=== PATIENT | female | born 1965 | race Caucasian/White ===

== ENCOUNTER → 2016-12-05 | Outpatient (CLI) | payer BC ==
[~2016-12-05] MED LIST: CALC500C70 PO; CNT PO; CYAN100020 PO; DIPH-416 PO; DORZ1SOL OPB; EST1 PO; PANT40TA PO; RANI1TAB77 PO
--- NOTE | 2016-12-06 13:29 | MAMMOGRAPHY REPORT ---
BILATERAL DIGITAL SCREENING MAMMOGRAM TOMOSYNTHESIS WITH CAD: 12/05/2016 CLINICAL HISTORY: Routine screening examination. TECHNIQUE: Breast tomosynthesis in addition to standard 2D mammography was performed. Current study was also evaluated with a Computer Aided Detection (CAD) system. COMPARISON: Comparison is made to exams dated: 11/25/2014 mammogram, 12/02/2015 mammogram, 10/15/2012 mammogram, and 10/08/2012 mammogram - [facility]. BREAST COMPOSITION: The tissue of both breasts is extremely dense, which lowers the sensitivity of mammography. FINDINGS: There are minimal vascular calcifications in the right breast. A grouping of round and pu nctate microcalcifications in the upper outer posterior right breast appears similar dating back to at least 07/29/2010, therefore likely benign. No new suspicious mass, architectural distortion or c luster of new, suspicious microcalcifications is seen. IMPRESSION: ACR BI-RADS CATEGORY 1: NEGATIVE There is no mammographic evidence of malignancy. A 1 year screening mammogram is recommended. The p atient will receive written notification of the results. Approximately 10% of breast cancers are not detected with mammography. A negative mammographic repor t should not delay biopsy if a clinically suggestive mass is present. Patsy Cardenas M.D. ay/:12/05/2016 16:47:15 Bit Welder: Analy TUCKER)(Kathie), [facility] letter sent: Normal 1/2 BI-RADS Code: ACR BI-RADS Category 1: Negative
== END | disposition home or self-care (01) ==
LOC: C.MAMM 11:03
PROVIDERS: ATTEND Internal Medicine
DX: Z12.31 Encounter for screening mammogram for malignant neoplasm of breast (principal)

== ENCOUNTER → 2017-01-02 | Day surgery (SDC) | payer BC ==
[2016-12-29 08:58] VITALS: Ht 165.1 cm; Wt 45.5 kg
[~2017-01-02] VITALS: Ht 165.1 cm; Wt 45.5 kg
[~2017-01-02] MED LIST changes: +LIDOCAINE HCL 2% 2 ML VIAL (20MG/ML) ONE; +MIDAZOLAM HCL 1 MG/ML 2ML VIAL ONE; +PROPOFOL IV EMULSION 10 MG/ML 20 ML VIAL IV ONE; +SODIUM CHLORIDE 0.9% 500ML 500 ML IV ONE
--- NOTE | 2017-01-02 11:56 | Endo History and Physical ---
History & Physical Date of Service: Jan 02, 2017. Chief Complaint: Reyes Syndrome Referring Physician: Dr. 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 Past Medical History Glaucoma, Cancer, Thyroid Disease Past Surgical History Hx Cardiac Surgery: No Hx Internal Defibrillator: No Hx Pacemaker: No Hx Abdominal Surgery: Yes (COLON RESECTION WITH COLOSTOMY, SMALL BOWEL RESECTION, TOTAL COLECTOMY/ILEO) Hx Post-Op Nausea and Vomiting: Yes Hx Cancer Surgery: Yes (SEE ABOVE) Hx Thoracic Surgery: No Hx Orthopedic: No Hx Urinary Tract Surgery: No Family History Colon CA Social History Smoking Status: Never Smoker Hx Substance Use: No Hx Alcohol Use: No Allergies Coded Allergies: Prochlorperazine (Verified Allergy, Unknown, JITTERY,MIND RACING, 12/29/16) Penicillins (Verified Adverse Reaction, Unknown, GI UPSET;DIARRHEA, ) Current Medications Reported Home Medications Medications Dose Route/Sig Max Daily Dose Days Date Category Dose Instructions Vitamin B12 (Cyanocobalamin) 1,000 Mcg Tab 1 Tab PO QAM 12/29/16 Reported Protonix (Pantoprazole Sodium) 40 Mg Tab 40 Mg PO DAILY PRN 10/23/15 Reported Ranitidine [address] (Ranitidine HCl) 150 Mg Tab PO HS 11/20/14 Reported Trusopt Oph (Dorzolamide HCl) Soln 2 Drop OPB BID 09/30/13 Reported Lomotil (Diphenoxylate HCl/Atropine) Tab 1 Tab PO UD 02/08/12 Reported Os-Magnus 500 Plus D (Calcium/Vitamin D) Tab 1 Tab PO DAILY 12/01/11 Reported Centrum * (Multivitamins/Minerals) 1 Tab Tab 1 Tab PO DAILY 12/01/11 Reported CHEWABLE TAB Estrace * (Estradiol) 1 Mg Tab 1 Mg PO Q2D 12/01/11 Reported Vital Signs Weight (Kilograms): 45.45 Height (Feet): 5 Height (Inches): 5 Date Time Temp Pulse Resp B/P Pulse Ox O2 Delivery O2 Flow Rate FiO2 01/02/17 11:20 36.5 61 16 94/47 100 Room Air Physical Exam General Appearance: WD/WN, no apparent distress Respiratory/Chest: Auscultation: breath sounds normal Cardiovascular: Heart Auscultation: RRR Abdomen: Bowel Sounds: normal Inspection & Palpation: soft, non-distended, no tenderness, guarding & rebound Assessment and Plan Assessment: 51 yo CF who presents for 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
--- NOTE | 2017-01-02 12:34 | GI REPORT ---
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 Estimated Blood Loss: Estimated blood loss: none. Procedure: Pre-Anesthesia Assessment: - Prior to the procedure, a History and Physical was performed, and patient medications and allergies were reviewed. The patient's tolerance of previous anesthesia was also reviewed. The risks and benefits of the procedure and the sedation options and risks were discussed with the patient. All questions were answered, and informed consent was obtained. Prior Anticoagulants: The patient has taken no previous anticoagulant or antiplatelet agents. ASA Grade Assessment: II - A patient with mild systemic disease. After reviewing the risks and benefits, the patient was deemed in satisfactory condition to undergo the procedure. After obtaining informed consent, the endoscope was passed under direct vision. Throughout the procedure, the patient's blood pressure, pulse, and oxygen saturations were monitored continuously. The scope was introduced through the mouth, and advanced to the second part of duodenum. The upper GI endoscopy was accomplished without difficulty. The patient tolerated the procedure well. Findings: The esophagus was normal. One 4 mm sessile polyp with no stigmata of recent bleeding was found in the gastric fundus. The polyp was removed with a cold biopsy forceps. Resection and retrieval were complete. The examined duodenum was normal. Impression: - Normal esophagus. - One gastric polyp. Resected and retrieved. - Normal examined duodenum. Recommendation: - Resume previous diet. - Continue present medications. - Await pathology results. - Return to GI office as previously scheduled. Catracho Carrion, 01/02/2017 12:33:50 PM This report has been signed electronically. Note Initiated On: 01/02/2017 11:45 AM I attest to the content of the Intraoperative Record and orders documented therein, exceptions below
--- NOTE | 2017-01-02 12:35 | Anesthesiology Progress Note ---
Anesthesia Post Op Note Date & Time Jan 02, 2017 at 12:35 Vital Signs Pain Intensity: 0 Vital Signs Past 12 Hours Date Time Temp Pulse Resp B/P Pulse Ox O2 Delivery O2 Flow Rate FiO2 01/02/17 11:20 36.5 61 16 94/47 100 Room Air Notes Mental Status: alert / awake / arousable, participated in evaluation Pt Amnestic to Procedure: Yes Nausea / Vomiting: adequately controlled Pain: adequately controlled Airway Patency, RR, SpO2: stable & adequate BP & HR: stable & adequate Hydration State: stable & adequate Anesthetic Complications: no major complications apparent
--- NOTE | 2017-01-02 12:38 | Discharge Instructions ---
Endoscopy Patient Instructions Date / Procedure(s) Performed Jan 02, 2017. EGD Allergy Information Coded Allergies: Prochlorperazine (Verified Allergy, Unknown, JITTERY,MIND RACING, 12/29/16) Penicillins (Verified Adverse Reaction, Unknown, GI UPSET;DIARRHEA, ) Discharge Date / Findings Jan 02, 2017. Gastric polyp s/p polypectomy with colon forceps Medication Instructions OK to resume all medications today as prescribed. Reported Home Medications Medications Dose Route/Sig Max Daily Dose Days Date Category Dose Instructions Vitamin B12 (Cyanocobalamin) 1,000 Mcg Tab 1 Tab PO QAM 12/29/16 Reported Protonix (Pantoprazole Sodium) 40 Mg Tab 40 Mg PO DAILY PRN 10/23/15 Reported Ranitidine [address] (Ranitidine HCl) 150 Mg Tab PO HS 11/20/14 Reported Trusopt Oph (Dorzolamide HCl) Soln 2 Drop OPB BID 09/30/13 Reported Lomotil (Diphenoxylate HCl/Atropine) Tab 1 Tab PO UD 02/08/12 Reported Os-Magnus 500 Plus D (Calcium/Vitamin D) Tab 1 Tab PO DAILY 12/01/11 Reported Centrum * (Multivitamins/Minerals) 1 Tab Tab 1 Tab PO DAILY 12/01/11 Reported CHEWABLE TAB Estrace * (Estradiol) 1 Mg Tab 1 Mg PO Q2D 12/01/11 Reported Provider Instructions Activity Restrictions - No exercising or heavy lifting for 24 hours. - Do not drink alcohol the day of the procedure. - Do not drive a car or operate machinery until the day after the procedure. - Do not make any important decisions or sign important papers in 24 hours after the procedure. Following Day: - Return to full activity which may include returning to work/school. Diet Start your diet with liquids and light foods (jello, soup, juice, toast). Then eat your usual diet if not nauseated. Treatment For Common After Affects For mild abdominal pain, bloating, or excessive gas: - Rest - Eat lightly - Lie on right side Follow-Up Information Follow-up with Dr. Rodriguez as scheduled Anesthesia Information What You Should Know You have had a procedure that required some medicine to reduce anxiety and discomfort. This treatment is called moderate sedation. After receiving the treatment, you may be sleepy, but you will be able to breathe on your own. The effects of the treatment may last for several hours. Follow these instructions along with Activity/Diet recommendations noted above: * Do NOT do anything where dizziness or clumsiness would be dangerous. * Rest quietly at home today, then you can be up and about tomorrow. * Have a responsible person stay with you the rest of today. * You may have had an I.V. today. If so, you may take the dressing off later today. Recommendations Call your doctor if: * Trouble breathing * Continuous vomiting for more than 24 hours * Temperature above 101 degrees * Severe abdominal pain or bloating * Pain not relieved by pain medicine ordered * There is increased drainage or redness from any incision * A large amount of rectal bleeding greater than 2-3 tablespoons. (If you had a polyp/s removed or have hemorrhoids, a small amount of blood - from the rectum is to be expected.) * You have any unanswered questions or concerns. IN THE EVENT OF A SERIOUS EMERGENCY, GO TO THE NEAREST EMERGENCY ROOM Your discharge instructions were prepared by provider Catracho Carrion. Patient Instructions Signature Page Cher Tsang Patient (or Guardian) Signature/Date: I have read and understand the instructions given to me by my caregivers. Caregiver/RN/Doctor Signature/Date: The above-named patient and/or guardian has received patient instructions on this date. + Original Patient Signature Page (only) stays with chart. Please make copy for patient.
[2017-01-02 13:00] VITALS: BP 93/54; PULSE 75; O2SAT 100
== END | disposition home or self-care (01) ==
LOC: C.GI 10:52
PROVIDERS: ATTEND Internal Medicine
DX: K31.7 Polyp of stomach and duodenum (principal); Z15.09 Genetic susceptibility to other malignant neoplasm; Z80.0 Family history of malignant neoplasm of digestive organs

== ENCOUNTER → 2017-04-06 | Outpatient (CLI) | payer BC ==
[~2017-04-06] MED LIST changes: -LIDOCAINE HCL 2% 2 ML VIAL (20MG/ML) ONE; -MIDAZOLAM HCL 1 MG/ML 2ML VIAL ONE; -PROPOFOL IV EMULSION 10 MG/ML 20 ML VIAL IV ONE; -SODIUM CHLORIDE 0.9% 500ML 500 ML IV ONE
[2017-04-06 14:43] LABS: BASO % 0.5 %; BASO ABS # 0.03 K/uL (0-0.2); COMPLETE YES; EOS % 1.5 %; HEMATOCRIT 40.4 % (37-47); IG% 0.2 %; LYMPH ABS # 1.87 K/uL (1.2-3.4); MEAN CORPUSCULAR HEMOGLOBIN 32.3 pg (25-34); MEAN CORPUSCULAR HGB CONC 34.4 g/dl (32-36); MEAN PLATELET VOLUME 9.6 fL (7.4-10.4); MONO % 5.1 %; NEUT % 61.7 %; PLATELET COUNT 210 K/uL (130-400); WHITE BLOOD COUNT 6.03 K/uL (4.8-10.8)
[2017-04-06 15:43] LABS: CALCIUM 9.4 mg/dl (8.5-10.1)
[2017-04-06 15:44] LABS: ALT/SGPT 38 U/L (12-78); BLOOD UREA NITROGEN 15 mg/dl (7-18); BUN/CREATININE RATIO 18.1 (10-20); CARBON DIOXIDE 32 mmol/L (21-32); CHLORIDE 103 mmol/L (98-107); CREATININE 0.81 mg/dl (0.60-1.20); GLUCOSE 80 mg/dl (70-99); MAGNESIUM 1.8 mg/dl (1.8-2.4); POTASSIUM 4.6 mmol/L (3.5-5.1); SODIUM 141 mmol/L (136-145)
[2017-04-06 15:53] LABS: ALKALINE PHOSPHATASE 79 U/L (45-117); AST/SGOT 35 U/L (15-37); FERRITIN 97.8 ng/ml (8.0-388.0)
== END | disposition home or self-care (01) ==
LOC: C.LAB1850 12:50
PROVIDERS: ATTEND Family Medicine
DX: K90.9 Intestinal malabsorption, unspecified (principal); E89.0 Postprocedural hypothyroidism; R53.83 Other fatigue; E55.9 Vitamin D deficiency, unspecified; E53.8 Deficiency of other specified B group vitamins

== ENCOUNTER → 2017-04-10 | Outpatient (CLI) | payer BC | END | disposition home or self-care (01) | LOC: C.PAPS 13:39 | PROVIDERS: ATTEND Obstetrics & Gynecology | DX: Z01.419 Encounter for gynecological examination (general) (routine) without abnormal findings (principal) ==

== ENCOUNTER → 2017-04-11 | Outpatient (CLI) | payer BC ==
--- NOTE | 2017-04-11 15:23 | DIAGNOSTIC IMAGING REPORT ---
EXAMINATION: RENAL ULTRASOUND CLINICAL HISTORY: Z15.09 Genetic susceptibility to other malignant [id number] C COMPARISON STUDY: 04/01/2016 FINDINGS: The right kidney measures 11.2 cm. The left kidney measures 10.3 cm. There is no evidence of hydronephrosis. There is a 4 mm hyperechoic focus within the upper pole of the right kidney. This remains unchanged the prior study and could represent a tiny angiomyolipoma. Inferior to the lower pole the right kidney are 2 small cystic structures measuring 23 x 12 x 5 mm, and 11 x 11 x 5 mm. These are smaller than the prior study. No bladder abnormalities are visualized. Bilateral ureteral jets were visualized. IMPRESSION : 1. Interval decrease in the size of the small cystic structures/fluid collections located below the lower pole the right kidney. 2. Stable 4 mm echogenic lesion within the upper pole the right kidney, possibly representing an angiomyolipoma Electronically signed by: Telly Guzman M.D. 04/11/2017 3:21 PM Dictated Date/Time: 04/11/2017 3:16 PM
== END | disposition home or self-care (01) ==
LOC: C.ULTR 14:34
PROVIDERS: ATTEND Internal Medicine
DX: Z15.09 Genetic susceptibility to other malignant neoplasm (principal); N28.1 Cyst of kidney, acquired; R82.90 Unspecified abnormal findings in urine

== ENCOUNTER → 2017-05-02 | Outpatient (CLI) | payer BC ==
--- NOTE | 2017-05-02 11:52 | DIAGNOSTIC IMAGING REPORT ---
MRI OF THE BRAIN WITHOUT CONTRAST CLINICAL HISTORY: History of malignancy. Reyes syndrome. Abnormal weight loss. COMPARISON STUDY: MRI of the brain April 19, 2016. TECHNIQUE: Utilizing a 1.5 Reshma magnet and dedicated coil, multiplanar, multiecho imaging of the brain was performed without IV contrast. FINDINGS: There are no areas of restricted diffusion. No acute intracranial hemorrhage, midline shift or mass effect is present. Ventricular system is normal. Basilar cisterns are patent. No extra axial collections are present. Flow-voids for the major intracranial vessels are present. No intracranial masses are identified on this unenhanced exam. A 4 mm T2 hypertense focus within the right parietal lobe is noted. This was not clearly identified on prior exam but is of doubtful clinical significance. Calvarial signal is maintained. Orbits and sinuses are unremarkable. IMPRESSION: 1. No acute intracranial findings. 2. No intracranial masses identified on this unenhanced exam. 3. 4 mm T2 hyperintense focus within the white matter of the right parietal lobe which was not clearly identified on prior exam but is of doubtful clinical significance and could reflect mild small vessel disease. Electronically signed by: Keith Estrada M.D. 05/02/2017 11:51 AM Dictated Date/Time: 05/02/2017 11:45 AM
== END | disposition home or self-care (01) ==
LOC: C.MRI 11:00
PROVIDERS: ATTEND Internal Medicine
DX: R63.4 Abnormal weight loss (principal); C80.1 Malignant (primary) neoplasm, unspecified; Z15.09 Genetic susceptibility to other malignant neoplasm; Z93.2 Ileostomy status

== ENCOUNTER → 2017-05-30 | Outpatient (CLI) | payer BC ==
--- NOTE | 2017-05-30 09:52 | DIAGNOSTIC IMAGING REPORT ---
ABDOMINAL ULTRASOUND, RIGHT UPPER QUADRANT HISTORY: Abnormal finding on CT. Right upper quadrant pain. COMPARISON: Renal ultrasound April 11, [address] of the abdomen and pelvis May 25, 2016. FINDINGS: Liver morphology is normal. A 3.7 x 2.9 x 2.8 cm echogenic right lobe lesion corresponds to the lesion shown on prior CT and is consistent with a hemangioma. There is also a 0.7 cm echogenic hepatic lesion consistent with an additional hemangioma. There is no biliary ductal dilatation status post cholecystectomy. The pancreas body is unremarkable. Head and tail are obscured. There is no right hydronephrosis. A 5 mm echogenic lesion within the upper pole of the right kidney is unchanged and suggests an angiomyolipoma. Note is made of several cystic structures located inferior lateral to the right kidney. The largest measures 3 x 1.1 x 2 cm. This previously measured 2.3 x 1.2 x 0.5 cm. The smaller cystic abnormality is unchanged. IMPRESSION: 1. No biliary ductal dilatation status post cholecystectomy. 2. No change in 2 right hepatic lobe hemangiomas. 3. Stable 5 mm echogenic right renal lesion suggestive of an angiomyolipoma. 4. Redemonstration of a few cystic structures inferolateral to the right kidney which have been shown on prior exams. Slight increase in size of the largest focus which may be due to measurement variability. These are low suspicion. Electronically signed by: Keith Estrada M.D. 05/30/2017 9:51 AM Dictated Date/Time: 05/30/2017 9:27 AM
== END | disposition home or self-care (01) ==
LOC: C.ULTR 08:40
PROVIDERS: ATTEND Physician Assistant
DX: R10.11 Right upper quadrant pain (principal); R93.8 Abnormal findings on diagnostic imaging of other specified body structures

== ENCOUNTER → 2017-06-15 | Outpatient (CLI) | payer BC | END | disposition home or self-care (01) | LOC: C.LABSPEC 12:14 | PROVIDERS: ATTEND Physician Assistant | DX: N39.0 Urinary tract infection, site not specified (principal) ==

== ENCOUNTER → 2017-08-16 | Day surgery (SDC) | payer BC | END | disposition home or self-care (01) | LOC: C.ACU 13:44 | PROVIDERS: ATTEND Physician Assistant | DX: R19.7 Diarrhea, unspecified (principal); R10.11 Right upper quadrant pain; R93.9 Diagnostic imaging inconclusive due to excess body fat of patient; Z84.81 Family history of carrier of genetic disease ==

== ENCOUNTER → 2018-01-29 | Outpatient (CLI) | payer OTHER ==
[~2018-01-29] MED LIST changes: -CALC500C70 PO; +CALC600T9 PO; -CNT PO; -DORZ1SOL OPB; +DORZ2SOL17 OPB; -EST1 PO; +ESTR0.5T5 PO; +MULTTAB58 PO; +RANI150T85 PO; -RANI1TAB77 PO
--- NOTE | 2018-01-30 13:03 | MAMMOGRAPHY REPORT ---
BILATERAL DIGITAL SCREENING MAMMOGRAM TOMOSYNTHESIS WITH CAD: 01/29/2018 CLINICAL HISTORY: Routine screening. TECHNIQUE: Breast tomosynthesis in addition to standard 2D mammography was performed. Current study was also evaluated with a Computer Aided Detection (CAD) system. COMPARISON: Comparison is made to exams dated: 12/05/2016 mammogram, 12/02/2015 mammogram, 11/25/2014 m ammogram, 10/16/2013 mammogram, 10/08/2012 mammogram, and 08/09/2011 mammogram - [facility]. BREAST COMPOSITION: The tissue of both breasts is extremely dense, which lowers the sensitivity of m ammography. FINDINGS: There are stable round and punctate microcalcifications in the superior posterior right br east on the MLO view, which appear similar dating back to at least 2009. No suspicious mass, archite ctural distortion or cluster of new, suspicious microcalcifications is seen. IMPRESSION: ACR BI-RADS CATEGORY 2: BENIGN There is no mammographic evidence of malignancy. A 1 year screening mammogram is recommended. The pa tient will receive written notification of the results. Approximately 10% of breast cancers are not detected with mammography. A negative mammographic report should not delay biopsy if a clinically suggestive mass is present. Patsy Cardenas M.D. ay/:01/29/2018 15:44:30 Bow Maker Production: Royce AUGUSTINE(Arlet)(M), [facility] letter sent: Normal 1/2 BI-RADS Code: ACR BI-RADS Category 2: Benign
== END | disposition home or self-care (01) ==
LOC: C.MAMM 14:25
PROVIDERS: ATTEND Obstetrics & Gynecology
DX: Z12.31 Encounter for screening mammogram for malignant neoplasm of breast (principal)

== ENCOUNTER → 2018-02-13 | Day surgery (SDC) | payer OTHER ==
[2018-01-26 13:35] VITALS: Ht 167.6 cm; Wt 43.2 kg
[~2018-02-13] VITALS: Ht 167.6 cm; Wt 43.2 kg
[~2018-02-13] MED LIST changes: +FENTANYL CITRATE INJ 50 MCG/1 ML 2 ML VIAL ONE; +LIDOCAINE HCL 2% 2 ML VIAL (20MG/ML) ONE; +PROPOFOL IV EMULSION 10 MG/ML 20 ML VIAL IV ONE; +SODIUM CHLORIDE 0.9% 500ML 500 ML IV ONE
--- NOTE | 2018-02-13 08:37 | Endo History and Physical ---
History & Physical Date of Service: Feb 13, 2018. Chief Complaint: Reyes Syndrome Referring Physician: Dr. 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 Past Medical History Glaucoma, Cancer, Thyroid Disease Past Surgical History Hx Cardiac Surgery: No Hx Internal Defibrillator: No Hx Pacemaker: No Hx Abdominal Surgery: Yes (COLON RESECTION WITH COLOSTOMY, SMALL BOWEL RESECTION, TOTAL COLECTOMY/ILEO) Hx of Implantable Prosthesis: No Hx Post-Op Nausea and Vomiting: Yes Hx Cancer Surgery: Yes (SEE ABOVE) Hx Thoracic Surgery: No Hx Orthopedic: No Hx Urinary Tract Surgery: No Family History Colon CA Social History Smoking Status: Never Smoker Hx Substance Use: No Hx Alcohol Use: No Allergies Coded Allergies: Prochlorperazine (Verified Allergy, Unknown, JITTERY,MIND RACING, 01/26/18) Penicillins (Verified Adverse Reaction, Unknown, GI UPSET;DIARRHEA, ) Current Medications Reported Home Medications Medications Dose Route/Sig Max Daily Dose Days Date Category Trusopt Oph (Dorzolamide Hcl) 2 % Sweetie 1 Drops OPB BID 01/26/18 Reported Vitamin B12 (Cyanocobalamin) 1,000 Mcg Tab 1 Tab PO QAM 01/26/18 Reported Calcium + D (Calcium Carbonate-Vitamin D) 1 Tab Tab 1 Tab PO QAM 01/26/18 Reported Multivitamin (Multiple Vitamin) 1 Tab Tab 1 Tab PO QAM 01/26/18 Reported Protonix (Pantoprazole Sodium) 40 Mg Tab 40 Mg PO DAILY PRN 01/26/18 Reported Zantac (Ranitidine HCl) 150 Mg Tab 150 Mg PO HS 01/26/18 Reported Estrace (Estradiol) 0.5 Mg Tab 1 Tab PO Q2D 01/26/18 Reported Lomotil (Diphenoxylate HCl/Atropine) Tab 1 Tab PO UD 02/08/12 Reported Vital Signs Weight (Kilograms): 43.18 Height (Feet): 5 Height (Inches): 6 Physical Exam General Appearance: WD/WN, no apparent distress Respiratory/Chest: Auscultation: breath sounds normal Cardiovascular: Heart Auscultation: RRR Abdomen: Bowel Sounds: normal Inspection & Palpation: soft, non-distended, no tenderness, guarding & rebound Assessment and Plan Assessment: 52 yo CF who presents for 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 Plan: Proceed with EGD.
--- NOTE | 2018-02-13 09:29 | Discharge Instructions ---
Endoscopy Patient Instructions Date / Procedure(s) Performed Feb 13, 2018. EGD Allergy Information Coded Allergies: Prochlorperazine (Verified Allergy, Unknown, JITTERY,MIND RACING, 02/13/18) Penicillins (Verified Adverse Reaction, Unknown, GI UPSET;DIARRHEA, ) Discharge Date / Findings Feb 13, 2018. Prominent ampulla s/p biopsies Medication Instructions OK to resume all medications today as prescribed Reported Home Medications Medications Dose Route/Sig Max Daily Dose Days Date Category Trusopt Oph (Dorzolamide Hcl) 2 % Sweetie 1 Drops OPB BID 01/26/18 Reported Vitamin B12 (Cyanocobalamin) 1,000 Mcg Tab 1 Tab PO QAM 01/26/18 Reported Calcium + D (Calcium Carbonate-Vitamin D) 1 Tab Tab 1 Tab PO QAM 01/26/18 Reported Multivitamin (Multiple Vitamin) 1 Tab Tab 1 Tab PO QAM 01/26/18 Reported Protonix (Pantoprazole Sodium) 40 Mg Tab 40 Mg PO DAILY PRN 01/26/18 Reported Zantac (Ranitidine HCl) 150 Mg Tab 150 Mg PO HS 01/26/18 Reported Estrace (Estradiol) 0.5 Mg Tab 1 Tab PO Q2D 01/26/18 Reported Lomotil (Diphenoxylate HCl/Atropine) Tab 1 Tab PO UD 02/08/12 Reported Provider Instructions Activity Restrictions - No exercising or heavy lifting for 24 hours. - Do not drink alcohol the day of the procedure. - Do not drive a car or operate machinery until the day after the procedure. - Do not make any important decisions or sign important papers in 24 hours after the procedure. Following Day: - Return to full activity which may include returning to work/school. Diet Start your diet with liquids and light foods (jello, soup, juice, toast). Then eat your usual diet if not nauseated. Treatment For Common After Affects For mild abdominal pain, bloating, or excessive gas: - Rest - Eat lightly - Lie on right side Follow-Up Information Follow-up with Dr Kelsi Rodriguez as scheduled Anesthesia Information What You Should Know You have had a procedure that required some medicine to reduce anxiety and discomfort. This treatment is called moderate sedation. After receiving the treatment, you may be sleepy, but you will be able to breathe on your own. The effects of the treatment may last for several hours. Follow these instructions along with Activity/Diet recommendations noted above: * Do NOT do anything where dizziness or clumsiness would be dangerous. * Rest quietly at home today, then you can be up and about tomorrow. * Have a responsible person stay with you the rest of today. * You may have had an I.V. today. If so, you may take the dressing off later today. Recommendations Call your doctor if: * Trouble breathing * Continuous vomiting for more than 24 hours * Temperature above 101 degrees * Severe abdominal pain or bloating * Pain not relieved by pain medicine ordered * There is increased drainage or redness from any incision * A large amount of rectal bleeding greater than 2-3 tablespoons. (If you had a polyp/s removed or have hemorrhoids, a small amount of blood - from the rectum is to be expected.) * You have any unanswered questions or concerns. IN THE EVENT OF A SERIOUS EMERGENCY, GO TO THE NEAREST EMERGENCY ROOM Your discharge instructions were prepared by provider Catracho Carrion. Patient Instructions Signature Page Cher Tsang Patient (or Guardian) Signature/Date: I have read and understand the instructions given to me by my caregivers. Caregiver/RN/Doctor Signature/Date: The above-named patient and/or guardian has received patient instructions on this date. + Original Patient Signature Page (only) stays with chart. Please make copy for patient.
--- NOTE | 2018-02-13 09:35 | GI REPORT ---
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 Estimated Blood Loss: Estimated blood loss: none. Procedure: Pre-Anesthesia Assessment: - Prior to the procedure, a History and Physical was performed, and patient medications and allergies were reviewed. The patient's tolerance of previous anesthesia was also reviewed. The risks and benefits of the procedure and the sedation options and risks were discussed with the patient. All questions were answered, and informed consent was obtained. Prior Anticoagulants: The patient has taken no previous anticoagulant or antiplatelet agents. ASA Grade Assessment: II - A patient with mild systemic disease. After reviewing the risks and benefits, the patient was deemed in satisfactory condition to undergo the procedure. After obtaining informed consent, the endoscope was passed under direct vision. Throughout the procedure, the patient's blood pressure, pulse, and oxygen saturations were monitored continuously. The scope was introduced through the mouth, and advanced to the second part of duodenum. The upper GI endoscopy was accomplished without difficulty. The patient tolerated the procedure well. Findings: The esophagus was normal. The stomach was normal. The examined duodenum was normal. Biopsies were taken with a cold forceps for histology of a slight prominence of the ampulla. Impression: - Normal esophagus. - Normal stomach. - Normal examined duodenum. Biopsied. Recommendation: - Resume previous diet. - Continue present medications. - Await pathology results. - Return to primary care physician as previously scheduled. Catracho Carrion DO 02/13/2018 9:34:57 AM This report has been signed electronically. Note Initiated On: 02/13/2018 9:16 AM I attest to the content of the Intraoperative Record and orders documented therein, exceptions below
--- NOTE | 2018-02-13 09:58 | Anesthesiology Progress Note ---
Anesthesia Post Op Note Date & Time Feb 13, 2018 at 09:58 Vital Signs Vital Signs Past 12 Hours Date Time Temp Pulse Resp B/P (MAP) Pulse Ox O2 Delivery O2 Flow Rate FiO2 02/13/18 09:43 50 16 88/52 (64) 100 Room Air 02/13/18 09:28 50 16 116/62 (80) 100 Room Air 02/13/18 08:57 36.1 58 20 91/43 (59) 100 Room Air Notes Mental Status: alert / awake / arousable, participated in evaluation Pt Amnestic to Procedure: Yes Nausea / Vomiting: adequately controlled Pain: adequately controlled Airway Patency, RR, SpO2: stable & adequate BP & HR: stable & adequate Hydration State: stable & adequate Anesthetic Complications: no major complications apparent
[2018-02-13 10:13] VITALS: BP 86/53; PULSE 74; O2SAT 100
== END | disposition home or self-care (01) ==
LOC: C.GI 08:19
PROVIDERS: ATTEND Internal Medicine
DX: Z15.09 Genetic susceptibility to other malignant neoplasm (principal); Z80.0 Family history of malignant neoplasm of digestive organs; Z88.8 Allergy status to other drugs, medicaments and biological substances; Z88.0 Allergy status to penicillin; Z79.899 Other long term (current) drug therapy